=== PATIENT | male | born 1955 | race Caucasian/White ===

== ENCOUNTER 2022-11-07 16:42 | Outpatient (CLI) | payer MEDICARE, SELFPAY ==
--- NOTE | ~2022-11-07 | PE_ITS ---
EXAMINATION: PET_PETPSMAST_PT DATE: 11/08/2022 08:36 INDICATION: Prostate cancer. TECHNIQUE: 8.976 mCi of piflufolastat F-18 was administered intravenously. Low dose computed tomograp hy (CT) images were acquired from the base of the brain to the proximal thighs for attenuation correc tion and anatomic localization. Automated exposure control was employed. Dose-length product (DLP) wa s 786 mGy-cm. Positron emission tomography (PET) images were acquired in the same distribution. COMPARISON: Bone scan 11/08/2022 FINDINGS: Head/neck: There are no pathologically enlarged lymph nodes. Chest: There is mild atelectasis bilaterally. Calcified right lung nodule and calcified right hilar l ymph nodes are consistent with old granulomatous disease. No pleural effusion. The heart size is norm al. No pericardial effusion. Abdomen/pelvis/proximal thighs: The liver, gallbladder, spleen, pancreas, adrenal glands, and kidneys are normal. The prostate is moderately enlarged. There is increased activity in the prostate on the right with maximum SUV of 80.3. There is a left inguinal hernia containing fat. There is diverticulos is of the colon without evidence of diverticulitis. There are no dilated loops of bowel. The appendix is normal. There is an umbilical hernia containing fat with fat stranding suggesting inflammation or scarring. There are no pathologically enlarged lymph nodes. There is increased activity in a normal- sized perirectal node with maximum SUV of 38.2. There is no free intraperitoneal fluid. There is no o sseous malignancy. IMPRESSION: 1. Moderately enlarged prostate with increased activity on the right, consistent with primary maligna ncy. 2. Normal sized perirectal lymph node with increased activity, consistent with metastatic disease. Reviewed, dictated and finalized at location A. IMPRESSION: 1. Moderately enlarged prostate with increased activity on the right, consisten t with primary malignancy. 2. Normal sized perirectal lymph node with increased activity, consistent with metastatic disease.
== END 2022-11-07 16:43 | disposition home or self-care (01) ==
LOC: ANHIMG 16:49
PROVIDERS: Visit Provider Radiology Radiation Oncology
DX: C61 Malignant neoplasm of prostate (principal)
CPT/HCPCS: 78815; A9595

== ENCOUNTER 2022-11-08 07:57 | Outpatient (CLI) | payer MEDICARE, SELFPAY ==
--- NOTE | ~2022-11-08 | NM_ITS ---
NM bone scan whole body INDICATION: Stomach cancer TECHNIQUE: The patient was injected with 24 mCi Tc 99m HDP. Gamma camera images of the region of int erest and whole body were obtained. COMPARISON: Pet/CT scan dated 11/07/2022 FINDINGS: There is normal distribution of radiopharmaceutical throughout the skeletal and soft tissue structures. There is mild uptake in the shoulders, knees and right wrists, spine consistent with deg enerative joint disease. There is mild scoliosis. IMPRESSION: 1: Normal bone scan for age. No scintigraphic evidence for osseous metastases. Reviewed, dictated and finalized at location []
== END 2022-11-08 07:58 | disposition home or self-care (01) ==
PROVIDERS: Visit Provider Radiology Radiation Oncology
DX: C61 Malignant neoplasm of prostate (principal)
CPT/HCPCS: 78306; A9503